=== PATIENT | female | born 1985 | race Two or more races ===

== ENCOUNTER 2021-11-21 11:36 | Emergency (ER) | payer BC ==
[~2021-11-21] VITALS: Ht 162.6 cm; Wt 87.1 kg
[2021-11-21 11:50] VITALS: BP 134/86
[2021-11-21] MEDS ORDERED: IBUPROFEN 600 MG TABLET ONE (11:58)
[2021-11-21] MEDS ORDERED: ACETAMINOPHEN ES 500 MG TABLET ONE (11:58)
[2021-11-21] MEDS ORDERED: IBUPROFEN 600 MG TABLET PO ONE (12:00)
[2021-11-21] MEDS ORDERED: ACETAMINOPHEN ES 500 MG TABLET PO ONE (12:00)
[2021-11-21] MEDS ORDERED: IBUP-1957 PO (13:35)
--- NOTE | 2021-11-21 13:47 | NUR ---
Patient discharged to home in stable condition. Written and verbal after care instructions given. Patient verbalizes understanding of instruction.
== END 2021-11-21 13:48 | disposition home or self-care (01) ==
LOC: ER 11:47
DX: O90.89 Other complications of the puerperium, not elsewhere classified (principal); S20.219A Contusion of unspecified front wall of thorax, initial encounter; S50.812A Abrasion of left forearm, initial encounter; V49.9XXA Car occupant (driver) (passenger) injured in unspecified traffic accident, initial encounter; Y93.89 Activity, other specified; Y92.89 Other specified places as the place of occurrence of the external cause; Y99.8 Other external cause status
CPT/HCPCS: 71045-TC